=== PATIENT | female | born 1970 | race Caucasian/White ===

== ENCOUNTER 2016-07-15 17:31 | Emergency (ER) | payer MEDICAID ==
[~2016-07-15] VITALS: Ht 157.5 cm; Wt 59.0 kg
[2016-07-15 17:32] VITALS: Ht 157.5 cm; Wt 59.0 kg
[2016-07-15] MEDS ORDERED: KETOROLAC 30 MG INJ IM STA (17:41)
[2016-07-15] MEDS ORDERED: AMO500 PO (17:43)
[2016-07-15] MEDS ORDERED: IBUP-1542 PO (17:43)
--- NOTE | 2016-07-15 17:50 | ERD ---
ER Documentation Chief Complaint Date/Time DATE: 07/15/16 TIME: 17:48 Chief Complaint LT EAR PAIN X 3 DAYS HPI Patient is a 46-year-old female who presents to the emergency department with left ear pain 3 days. Patient states the pain is throbbing and sharp in nature. Patient states the pain is constant. Patient states she last took ibuprofen earlier this morning. She states that ibuprofen did not help her symptoms. Patient denies any fevers, chills, nausea, vomiting, chest pain, shortness of breath, cough, rhinorrhea or throat pain. Patient denies any ear drainage or discharge. No sick contacts. No recent travel. ROS All systems reviewed and are negative except as per history of present illness. Medications Home Meds Active Scripts Ibuprofen* (Motrin*) 600 Mg Tab, 600 MG PO Q6, #30 TAB Prov:LASHAUN ALMENDAREZ PA-C 07/15/16 Amoxicillin* (Amoxicillin*) 500 Mg Cap, 500 MG PO TID for 10 Days, CAP Prov:LASHAUN ALMENDAREZ PA-C 07/15/16 Allergies Allergies: Coded Allergies: No Known Allergy (Verified Allergy, Unknown, 12/21/08) FmHx Family History: No diabetes Physical Exam Vitals Vital Signs Date Time Temp Pulse Resp B/P Pulse Ox O2 Delivery O2 Flow Rate FiO2 07/15/16 17:32 99.8 69 18 121/66 100 Physical Exam GENERAL: Well-developed, well-nourished female. Appears in no acute distress. HEAD: Normocephalic, atraumatic. No deformities or ecchymosis. EYE: Pupils equal, round, and reactive to light. EOMs intact. No conjunctival erythema. No eye discharge. ENT: External ear without any masses or tenderness. Auditory canals clear bilaterally. Left tympanic membrane appears erythematous and bulging. Right tympanic membrane appears normal per nasal mucosa pink with no discharge. Oropharynx is pink without any tonsillar erythema or exudates. No uvula deviation. No kissing tonsils. Nontender to palpation of bilateral mastoid processes NECK: Supple. No meningismus. Normal ROM of the neck. LUNG: Clear to auscultation bilaterally. No rhonchi, wheezing, rales or coarse breath sounds. HEART: Regular rate and rhythm. No murmurs, rubs or gallops. BACK: No midline tenderness. EXTREMITES: Equal pulses bilaterally. No peripheral clubbing, cyanosis or edema. No unilateral leg swelling. NEUROLOGIC: Alert and oriented to person, place and time. Moving all four extremities. 5/5 strength in all extremities. Normal speech. Steady gait. Results 24 hrs Current Medications Medications (Trade) Dose Ordered Sig/Milagros Route PRN Reason Start Time Stop Time Status Last Admin Dose Admin Ketorolac Tromethamine (Toradol) 30 mg ONCE STAT IM 07/15/16 17:41 07/15/16 17:43 DC Procedures/MDM MEDICAL DECISION MAKING: This is a 46-year-old female who presents with left ear pain 3 days. Vital signs were reviewed. Patient was afebrile. Patient was not hypoxic. Exam revealed erythema and bulging of the left tympanic membrane. was negative. Patient stated that her pain was severe at this patient was given Toradol IM. Given these findings, the patients presentation is most consistent with otitis media of the left ear I have a much lower clinical suspicion for otitis externa, tympanic membrane perforation, mastoiditis, otic barotrauma, TMJ dysfunction, viral URI, pneumonia, sepsis. PRESCRIPTIONS: Amoxicillin ibuprofen DISCHARGE: At this time, patient is stable for discharge and outpatient management. I have instructed the patient to follow-up with his/her primary care physician in 1-2 days. I have discussed with the patient the possibility of needing to see a specialist for further workup and diagnostic studies if the pain persists. I have instructed the patient to promptly return to the ER at any time for any new or worsening symptoms including increased pain, fever, swelling, discharge or hearing loss. The patient and/or family expressed understanding of and agreement with this plan. All questions were answered. Home care instructions were provided. Departure Diagnosis: Primary Impression: Otitis media Otitis media type: unspecified Laterality: left Chronicity: unspecified Qualified Code: H66.92 - Left otitis media, unspecified chronicity, unspecified otitis media type Condition: Stable Patient Instructions: Otitis Media, Abx Tx (Adult) Referrals: COMM[facility] YOU HAVE RECEIVED A MEDICAL SCREENING EXAM AND THE RESULTS INDICATE THAT YOU DO NOT HAVE A CONDITION THAT REQUIRES URGENT TREATMENT IN THE EMERGENCY DEPARTMENT. FURTHER EVALUATION AND TREATMENT OF YOUR CONDITION CAN WAIT UNTIL YOU ARE SEEN IN YOUR DOCTORS OFFICE WITHIN THE NEXT 1-2 DAYS. IT IS YOUR RESPONSIBILITY TO MAKE AN APPOINTMENT FOR FOLOW-UP CARE. IF YOU HAVE A PRIMARY DOCTOR --you should call your primary doctor and schedule an appointment IF YOU DO NOT HAVE A PRIMARY DOCTOR YOU CAN CALL OUR PHYSICIAN REFERRAL HOTLINE AT IF YOU CAN NOT AFFORD TO SEE A PHYSICIAN YOU CAN CHOSE FROM THE FOLLOWING [facility] [address] [facility] [address] [facility] [address] [facility] [address] [facility] [address] [facility]. [facility] [address] [facility]. [facility] YOU HAVE RECEIVED A MEDICAL SCREENING EXAM AND THE RESULTS INDICATE THAT YOU DO NOT HAVE A CONDITION THAT REQUIRES URGENT TREATMENT IN THE EMERGENCY DEPARTMENT. FURTHER EVALUATION AND TREATMENT OF YOUR CONDITION CAN WAIT UNTIL YOU ARE SEEN IN YOUR DOCTORS OFFICE WITHIN THE NEXT 1-2 DAYS. IT IS YOUR RESPONSIBILITY TO MAKE AN APPOINTMENT FOR FOLOW-UP CARE. IF YOU HAVE A PRIMARY DOCTOR --you should call your primary doctor and schedule and appointment IF YOU DO NOT HAVE A PRIMARY DOCTOR YOU CAN CALL OUR PHYSICIAN REFERRAL HOTLINE AT . IF YOU CAN NOT AFFORD TO SEE A PHYSICIAN YOU CAN CHOSE FROM THE FOLLOWING [facility]: [facility] [address] [place] [address] [facility] [address] [place] [address] [facility] [address] [place] [address] Additional Instructions: Call your primary care doctor TOMORROW for an appointment during the next 1-2 days.See the doctor sooner or return here if your condition worsens before your appointment time. LASHAUN ALMENDAREZ PA-C Jul 15, 2016 17:50
== END 2016-07-15 18:06 | disposition home or self-care (01) ==
LOC: FTE 17:31
DX: H66.92 Otitis media, unspecified, left ear (principal)
CPT/HCPCS: 96372; J1885; Z7502

== ENCOUNTER 2018-02-22 17:49 | Emergency (ER) | END 2018-02-22 19:46 | disposition home or self-care (01) ==

== ENCOUNTER 2018-03-06 17:30 | Emergency (ER) | END 2018-03-06 19:04 | disposition home or self-care (01) ==

== ENCOUNTER 2018-04-20 20:33 | Emergency (ER) | END 2018-04-20 22:13 | disposition home or self-care (01) ==